=== PATIENT | male | born 2000 | race Hispanic/Latino ===

== ENCOUNTER 2023-06-05 08:36 | Day surgery (SDC) | payer SELFPAY ==
[2023-06-05] VITALS (16 sets, daily range): BP systolic 105–144; BP diastolic 60–90; PULSE 59–100; RESP 12–21; TEMP 36.4–36.9; O2SAT 98–100
--- NOTE | ~2023-06-05 | XR_ITS ---
EXAMINATION: XR abdomen/kub 1V INDICATION: Left flank pain and stone TECHNIQUE: Supine views of the abdomen were obtained on 2 radiographs. COMPARISON: CT from today FINDINGS: There is a 3 mm stone projecting in the proximal left ureter projecting between the left L2 and L3 transverse processes. Punctate stones of the kidneys identified on CT are not definitely seen . The bowel gas pattern is normal. There are no dilated loops of bowel. Multiple nodules are again no yosef in the right lower lobe, see CT for follow-up recommendations. IMPRESSION: 1. 3 mm stone proximal left ureter. Reviewed, dictated and finalized at location B. ER CRIMINAL
--- NOTE | ~2023-06-05 | CT_ITS ---
EXAMINATION: CT abdomen pelvis wo con DATE: 06/05/2023 10:25 INDICATION: Left-sided abdominal pain TECHNIQUE: Computed tomography (CT) of the abdomen and pelvis was performed without intravenous contr ast. Automated exposure control and iterative reconstruction technique were employed. The dose-length product was 310.79 mGy-cm. COMPARISON: None FINDINGS: Bronchiectasis and multiple pulmonary nodules clustered in the posterior right lower lobe, the larges t nodule measuring 1.6 x 1.1 cm. Additional 5 mm nodule at the lingula. Heart size is normal. No rené cardial or pleural effusion. Small sliding-type hiatal hernia versus wall thickening the distal esoph rufus. Liver, gallbladder, spleen, pancreas and bilateral adrenal glands are normal. Bilateral nephrol ithiasis with 3 nonobstructing stones in both the left and right kidneys, the largest on the left shavonne suring 3 mm. There is additional 4 mm stone at the left ureteropelvic junction without hydronephrosis . Decompressed bladder is normal. Bowels including the appendix are normal. No free intraperitoneal g as or fluid. No pathologically enlarged abdominal or pelvic lymphadenopathy. Schmorl's node along the superior endplate of S1. IMPRESSION: 1. Bilateral nephrolithiasis with 4 mm stone at the left ureteral pelvic junction without hydronephro sis. 2. Bronchiectasis and numerous associated pulmonary nodules in the posterior right lower lobe. The la rgest measuring up to 1.6 x 1.1 cm. The distribution and bronchiectatic change suggests this is seque la of chronic infection but would recommend further evaluation with either PET/CT or 3 month follow-u p low-dose noncontrast chest CT. 3. Small sliding-type hiatal hernia versus wall thickening in the distal esophagus. Reviewed, dictated and finalized at location A. [employer] IMPRESSION: 1. Bilateral nephrolithiasis with 4 mm stone at the left ureteral pelvic juncti on without hydronephrosis. 2. Bronchiectasis and numerous associated pulmonary nodules in the posterior ri ght lower lobe. The largest measuring up to 1.6 x 1.1 cm. The distribution and bronchiectatic change suggests this is sequela of chronic infection but would r ecommend further evaluation with either PET/CT or 3 month follow-up low-dose no ncontrast chest CT. 3. Small sliding-type hiatal hernia versus wall thickening in the distal esopha dayana.
--- NOTE | ~2023-06-05 | XR_ITS ---
EXAMINATION: XR retrograde pyelo w/stent LT DATE: 06/05/2023 15:50 TUBE CLEANER INDICATION: LEFT STONE RETRO/W STENT . TECHNIQUE: 4 fluoroscopic images, including 2 cine clips of 74 and 33 images of the abdomen and pelvi s were obtained during left retrograde pyelography with stent placement performed by the surgeon. I w as not present in the operating room. Fluoroscopy exposure time was 61.5 seconds. Air Kerma 15.48 mGy . DAP [id number] mGym2. COMPARISON: CT abdomen pelvis 06/05/2023 FINDINGS: Contrast is injected into the left ureter revealing a normal mid and distal ureter. Possible small fi lling defect at the UPJ on the left. Mild calyceal clubbing on the left. Post stent deployment the pr oximal partially expanded coil projects over the left kidney in the distal coil projects over the jourdan dder. IMPRESSION: Fluoroscopic documentation of left retrograde pyelography with stent placement. Please refer to the o perative note for complete procedural details . Reviewed, dictated and finalized at location K. CLEANER IMPRESSION: Fluoroscopic documentation of left retrograde pyelography with stent placement. Please refer to the operative note for complete procedural details .
[2023-06-05 10:09] LABS: Basophils Percent Auto 0.3 % (0.2-1.2); Eosinophils Percent Auto 0.3 % (0-4.4); Hematocrit 48.8 % (42.0-52.0); Hemoglobin 15.3 g/dL (14.0-18.0); Immature Granulocyte Absolute 0.05 K/mm3 (0.00-0.031); Immature Granulocyte Percent A 0.5 % (0-0.5); Lymphocytes Absolute Auto 1.15 K/mm3 (0.9-3.2); Lymphocytes Percent Auto 10.7 % (18.3-44.2); Mean Corpuscular HGB Conc 31.4 g/dl (32-36); Mean Platelet Volume 10.4 fl (7.4-10.4); Monocytes Absolute Auto 0.2 K/mm3 (0.1-0.6); Monocytes Percent Auto 2.2 % (2.6-8.5); Neutrophils Absolute Auto 9.3 K/mm3 (1.3-6.7); Platelet Count Result 285 k/mm3 (150-375); Red Blood Count 5.88 M/mm3 (4.6-6.20); Red Cell Distribution Width 14.6 % (11.5-14.5); White Blood Count 10.8 K/mm3 (4.5-10.0)
[2023-06-05 10:18] LABS: Appearance Urine Turbid (Clear); Bacteria Urine None Seen /hpf; Bilirubin Urine Negative (Negative); Blood Urine 3+ (Negative); Color Urine Yellow (Yellow); Glucose Urine UA Negative (Negative); Ketones Urine Negative (Negative); Leukocyte Esterase Ur Trace LEU/UL (Negative); Nitrate Urine Negative (Negative); Non Pathogenic Casts 0-2; Protein Urine 1+ mg/dL (Negative); RBC Urine >100 /hpf (0-2); Specific Grav Ur 1.022 (1.001-1.035); Squamous Epithelial Cell Urine None seen /hpf (Few); WBC Urine 0-5 /hpf; pH Urine 8.5 (5.0-9.0)
[2023-06-05 10:22] LABS: Alanine Aminotransferase 33 U/L (6-50); Albumin Level 4.9 g/dL (3.5-5.1); Alkaline Phosphatase 107 U/L (38-126); Anion Gap 9 mmol/L (8-16); Aspartate Amino Transferase 33 U/L (17-59); Bilirubin,Total 0.7 mg/dL (0.2-1.3); Blood Urea Nitrogen 16 mg/dL (9-20); Calcium 9.5 mg/dL (8.4-10.2); Carbon Dioxide 26 mmol/L (22-30); Chloride 105 mmol/L (98-107); Estimated CRCL calculation 90 ml/min; Estimated Glomerular Filt Rate > 60; Glucose 124 mg/dL (65-110); Lipase 53 U/L (23-300); Potassium 4.1 mmol/L (3.4-5.0); Sodium 140 mmol/L (137-145)
[2023-06-05 10:27] LABS: Add Urine Microscopic? YES
--- NOTE | 2023-06-05 10:28 | PC.NURSE ---
Pt assessment performed with php software engineer Lashaun #[id number]
[2023-06-05] MEDS: MORPHINE SULFATE (*CRX) 4 MG/ML INJ IV PUSH ×2 (10:42→11:35)
[2023-06-05] MEDS: ONDANSETRON INJ 4 MG/2 ML VIAL IV PUSH (10:43)
[2023-06-05] MEDS: ONDANSETRON INJ 4 MG/2 ML VIAL (11:35)
--- NOTE | 2023-06-05 11:48 | ED.ABDPAIN ---
HPI - Abdominal Pain General Chief Complaint: Abdominal Pain Stated Complaint: flank pain/vomiting Time Seen by Provider: 06/05/23 09:31 History of Present Illness HPI narrative: Patient is a 23-year-old male who presents ER with left-sided flank pain moving into his abdomen. Sudden onset this morning. Associated with nausea and vomiting. Feels similar to kidney stones he has had lasered in [place]. No dysuria. No fevers or chills or sweats. No aggravating or alleviating factors. Related Data Allergies Allergy/AdvReac Type Severity Reaction Status Date / Time No Known Allergies Allergy Verified 06/05/23 10:36 Review of Systems Review of Systems: All systems reviewed & are unremarkable except as noted in HPI and below Constitutional: Constitutional: Denies chills, Denies fatigue and Denies fever(s) ENT: Denies nasal congestion and Denies sore throat Cardiovascular: Cardiovascular: Denies chest pain, Denies rapid heart rate and Denies radiating jaw, neck or arm pain Gastrointestinal: Gastrointestinal: Reports abdominal pain, Reports nausea and Reports vomiting Genitourinary: Genitourinary: Denies hematuria, Denies oliguria, Denies dysuria, Denies testicular pain and Reports urinary frequency PMFSH Past Medical History Medical History Kidney stones Surgical History Surgical History H/O lithotripsy Exam Narrative: GENERAL: Uncomfortable-appearing, well-nourished, and in no acute distress. HEAD: Normocephalic, atraumatic. ENT: Mucous membranes moist. NECK: Supple. CHEST: Clear to auscultation. No respiratory distress. HEART: Regular rate and rhythm. Normal peripheral pulses. ABDOMEN: Soft, nontender, nondistended. EXTREMITIES: Normal range of motion. No edema. SKIN: Warm, dry, no rash. NEURO: Alert and oriented x3. PSYCH: Normal mood and affect. Course Course Emergency Course: Patient with persistent pain. Discussed with urology. Will take to the OR for definitive treatment. Vital Signs Vital signs: Vital Signs Temperature 97.6 F 06/05/23 08:48 Pulse Rate 74 06/05/23 08:48 Respiratory Rate 20 06/05/23 08:48 Blood Pressure 124/72 06/05/23 08:48 Pulse Oximetry 100 06/05/23 08:48 Oxygen Delivery Room Air 06/05/23 08:48 Temperature 97.8 F 06/05/23 16:32 Pulse Rate 93 06/05/23 17:40 Respiratory Rate 16 06/05/23 17:40 Blood Pressure 139/90 06/05/23 17:40 Pulse Oximetry 99 06/05/23 17:10 Oxygen Delivery Room Air 06/05/23 17:10 Oxygen Flow Rate 6 06/05/23 16:45 MDM - Abdominal Pain Lab Data 06/05/23 09:57 06/05/23 09:57 Labs: Lab Results 06/05/23 Range/Units 09:57 WBC 10.8 H (4.5-10.0) K/mm3 RBC 5.88 (4.6-6.20) M/mm3 Hgb 15.3 (14.0-18.0) g/dL Hct 48.8 (42.0-52.0) % MCV 83.0 (80-100) fl MCH 26.0 (26-34) pg MCHC 31.4 L (32-36) g/dl RDW 14.6 H (11.5-14.5) % Plt Count 285 (150-375) k/mm3 MPV 10.4 (7.4-10.4) fl Immature Gran % (Auto) 0.5 (0-0.5) % Neut % (Auto) 86.0 H (45.5-73.1) % Lymph % (Auto) 10.7 L (18.3-44.2) % Gordon % (Auto) 2.2 L (2.6-8.5) % Eos % (Auto) 0.3 (0-4.4) % Baso % (Auto) 0.3 (0.2-1.2) % Lymph # (Auto) 1.15 (0.9-3.2) K/mm3 Gordon # (Auto) 0.2 (0.1-0.6) K/mm3 Eos # (Auto) 0.0 (0-0.3) K/mm3 Baso # (Auto) 0.0 (0.0-0.1) K/mm3 Abs Immat Gran (auto) 0.05 H (0.00-0.031) K/mm3 Absolute Neuts (auto) 9.3 H (1.3-6.7) K/mm3 Absolute Nucleated RBC 0.0 (0.0-0.012) K/mm3 Nucleated RBC % 0.0 (0.0-0.2) % Sodium 140 (137-145) mmol/L Potassium 4.1 (3.4-5.0) mmol/L Chloride 105 (98-107) mmol/L Carbon Dioxide 26 (22-30) mmol/L Anion Gap 9 (8-16) mmol/L BUN 16 (9-20) mg/dL Creatinine 1.00 (0.7-1.3) mg/dL Estim Creat Clear Calc 90 ml/min Estimated GFR > 60 (59 - ) Glucose 124 H (65-110) mg/dL Ca
--- NOTE | 2023-06-05 13:00 | WPDURCON ---
Assessment and Plan Assessment and plan (1) Bilateral renal stones: Code(s): N20.0 - Calculus of kidney Status: Acute Assessment and Plan: No intervention today. Will follow annually with KUB, not visible on KUB. (2) Left ureteral stone: Code(s): N20.1 - Calculus of ureter Status: Acute Assessment and Plan: Visible on KUB, refractory pain despite attempts to control it with IV pain meds. Plan to visit the OR today with Dr. Riley for a Cystoscopy, left ureteroscopy, possible stone extraction, possible left stent placement, left retrograde pyelogram, possible holmium laser. Obtain consent. Keep NPO. Will likely discharge home after procedure if patient is improved. Urology Consult Note HPI Date Seen: 06/05/23 Primary Care Provider: [employer] MANAGER PHYSICIAN Consult Narrative Reason for consult: Left proximal ureteral stone Narrative: Mann Diane is a 23 year old male who presented to the ER with left-sided flank pain radiating into his LLQ.? The pain started suddenly this morning associated with nausea and vomiting.? He has a history stones and this feels similar to kidney stones he has had lasered in [place].? No dysuria or hematuria. No fevers or chills or sweats.? UA is normal and not suspicious of UTI, WBC is 10.8, Creatinine is 1.00, afebrile and his CT shows bilateral renal stones with a 4mm left UPJ stone without hydronephrosis and the KUB also confirms the left proximal ureteral stone. He is still having pain despite attempts to control it with IV pain medications. [facility] Past Medical History Medical History Kidney stones Surgical History Surgical History H/O lithotripsy Meds Home Medications and Allergies Allergies Allergy/AdvReac Type Severity Reaction Status Date / Time No Known Allergies Allergy Verified 06/05/23 10:36 Vital Signs Vital Signs - 24 hr 06/05/23 08:48 06/05/23 09:45 06/05/23 10:13 Temperature 97.6 F Pulse Rate 74 77 82 Respiratory Rate 20 17 20 Blood Pressure 124/72 125/77 144/88 H Pulse Oximetry 100 99 100 Oxygen Delivery Room Air 06/05/23 10:15 06/05/23 10:54 06/05/23 11:00 Temperature Pulse Rate 80 75 67 Respiratory Rate 19 15 14 Blood Pressure 135/82 109/76 110/74 Pulse Oximetry 100 98 100 Oxygen Delivery 06/05/23 11:30 06/05/23 11:47 Temperature Pulse Rate 65 69 Respiratory Rate 21 H 12 Blood Pressure 105/65 110/79 Pulse Oximetry 100 100 Oxygen Delivery Results Labs 06/05/23 09:57 06/05/23 09:57 Labs: Short CBC 06/05/23 Range/Units 09:57 WBC 10.8 H (4.5-10.0) K/mm3 Hgb 15.3 (14.0-18.0) g/dL Hct 48.8 (42.0-52.0) % Plt Count 285 (150-375) k/mm3 BMP 06/05/23 09:57 Sodium 140 Potassium 4.1 Chloride 105 Carbon Dioxide 26 BUN 16 Creatinine 1.00 Glucose 124 H Calcium 9.5 Liver Function 06/05/23 Range/Units 09:57 Total Bilirubin 0.7 (0.2-1.3) mg/dL AST 33 (17-59) U/L ALT 33 (6-50) U/L Alkaline Phosphatase 107 (38-126) U/L Albumin 4.9 (3.5-5.1) g/dL Urine 06/05/23 Range/Units 09:57 Urine Color Yellow (Yellow) Urine Appearance Turbid H (Clear) Urine pH 8.5 (5.0-9.0) Ur Specific [place] 1.022 (1.001-1.035) Urine Protein 1+ H (Negative) mg/dL Urine Glucose (UA) Negative (Negative) mg/dL Imaging Attestation: I personally reviewed and interpreted this imaging study as follows: Radiologist's impression: CT shows bilateral renal stones with a 4mm left UPJ stone without hydronephrosis and the KUB also confirms the left proximal ureteral stone.
--- NOTE | 2023-06-05 13:43 | PC.NURSE ---
[place] [employer] with Urology spoke with pt via interperter informed in detail the procedure and POC post op
[2023-06-05] MEDS: KETOROLAC 15 MG/ML VIAL (*BKC) IV PUSH (14:23)
--- NOTE | 2023-06-05 15:24 | WPDANESEPPF ---
Anes - Initial Pre Proc Eval Procedure: Operation Date: 06/05/23 15:30 Proposed Procedures p Cystoscopy, Left Ureteroscopy, Left Retrograde Pyelogram, Left Stone Extraction, Possible Left Stent Placement, Possible Holmium Laser Procedure - Demetrio Riley MD Date/Time: 06/05/23 15:24 Surgeon: Demetrio Riley MD Pre Op Diagnosis: flank pain/vomiting Patient Data Age: 23 Gender: M Height: 1.57 m Weight: 75 kg Last Vital Signs Temp 36.7 C 06/05/23 14:26 Pulse 59 L 06/05/23 14:26 Resp 18 06/05/23 14:26 BP 141/79 H 06/05/23 14:26 Pulse Ox 100 06/05/23 14:26 O2 Del Method Room Air 06/05/23 08:48 Allergies Allergy/AdvReac Type Severity Reaction Status Date / Time No Known Allergies Allergy Verified 06/05/23 10:36 Laboratory Tests 06/05/23 09:57 WBC 10.8 H K/mm3 (4.5-10.0) RBC 5.88 M/mm3 (4.6-6.20) Hgb 15.3 g/dL (14.0-18.0) Hct 48.8 % (42.0-52.0) MCV 83.0 fl (80-100) MCH 26.0 pg (26-34) MCHC 31.4 L g/dl (32-36) RDW 14.6 H % (11.5-14.5) Plt Count 285 k/mm3 (150-375) MPV 10.4 fl (7.4-10.4) Immature Gran % (Auto) 0.5 % (0-0.5) Neut % (Auto) 86.0 H % (45.5-73.1) Lymph % (Auto) 10.7 L % (18.3-44.2) Cameron % (Auto) 2.2 L % (2.6-8.5) Eos % (Auto) 0.3 % (0-4.4) Baso % (Auto) 0.3 % (0.2-1.2) Lymph # (Auto) 1.15 K/mm3 (0.9-3.2) Cameron # (Auto) 0.2 K/mm3 (0.1-0.6) Eos # (Auto) 0.0 K/mm3 (0-0.3) Baso # (Auto) 0.0 K/mm3 (0.0-0.1) Abs Immat Gran (auto) 0.05 H K/mm3 (0.00-0.031) Absolute Neuts (auto) 9.3 H K/mm3 (1.3-6.7) Absolute Nucleated RBC 0.0 K/mm3 (0.0-0.012) Nucleated RBC % 0.0 % (0.0-0.2) Sodium 140 mmol/L (137-145) Potassium 4.1 mmol/L (3.4-5.0) Chloride 105 mmol/L (98-107) Carbon Dioxide 26 mmol/L (22-30) Anion Gap 9 mmol/L (8-16) BUN 16 mg/dL (9-20) Creatinine 1.00 mg/dL (0.7-1.3) Estim Creat Clear Calc 90 ml/min Estimated GFR > 60 (59 - ) Glucose 124 H mg/dL (65-110) Calcium 9.5 mg/dL (8.4-10.2) Total Bilirubin 0.7 mg/dL (0.2-1.3) AST 33 U/L (17-59) ALT 33 U/L (6-50) Alkaline Phosphatase 107 U/L (38-126) Total Protein 9.0 H g/dL (6.3-8.2) Albumin 4.9 g/dL (3.5-5.1) Lipase 53 U/L (23-300) Urine Color Yellow (Yellow) Urine Appearance Turbid H (Clear) Urine pH 8.5 (5.0-9.0) Ur Specific [place] 1.022 (1.001-1.035) Urine Protein 1+ H mg/dL (Negative) Urine Glucose (UA) Negative mg/dL (Negative) Urine Ketones Negative mg/dL (Negative) Ur Blood (Man) 3+ H (Negative) Urine Nitrate Negative (Negative) Urine Bilirubin Negative (Negative) Urine Urobilinogen 1.0 mg/dL (<2.0) Leukocyte Esterase Rfl Trace H OMA/UL (Negative) Urine RBC >100 H /hpf (0-2) Urine WBC 0-5 /hpf Ur Squamous Epith Cells None seen /hpf (Few) Urine Bacteria None seen /hpf Urine Casts 0-2 Patient hx anesthesia problems: none Family hx anesthesia problems: none Results Review: All pre-operative results and documents have been reviewed as part of the pre-operative evaluation. [facility] Past Medical History Medical History Kidney stones Surgical History Surgical History H/O lithotripsy Anes - Eval Final PreProcedure Day of Procedure 06/05/23 15:24 Patient weight: normal Heart: regular rate and rhythm Lungs: clear to auscultation Airway: Mallampati scale class III Neurological: alert and oriented Last oral intake: >/= 8 hours ASA classification: II Emergent: no Anesthetic plan: proceed Anesthesia type and monitoring: general LMA and standard monitoring Results Review: All pre-operative results and documents have been reviewed as part of
--- NOTE | 2023-06-05 15:30 | WPDHPUPDATE1 ---
History and Physical Update Update Date/Time: 06/05/23 15:30 History and Physical has been reviewed, including an updated exam of the patient. There are NO changes in the patient's condition. Risks, benefits, and alternatives have been discussed and questions answered. Patient agrees to proceed with procedure.
[2023-06-05] MEDS: ceFAZolin 2 GM/D5W 50 ML 2 GM/50 ML BAG IVPB (15:45)
[2023-06-05] MEDS: LIDOCAINE HCL 2% GEL UROJET 10 ML PKG MUCOUS MEM (16:22)
[2023-06-05] MEDS: LACTATED RINGERS 1,000 ML 30 ML IV CONT ×2 (16:32→16:51)
--- NOTE | 2023-06-05 16:33 | W.PM.PROC2 ---
Procedure Note - Detailed Date of Procedure 06/05/23 Pre-op Diagnosis flank pain/vomiting Bilateral renal stones Left proximal ureteral stone Post-op Diagnosis Same Procedure Performed Cystoscopy, left retrograde pyelogram, left ureteroscopy, holmium laser lithotripsy, stone extraction, stent placement Surgeon Demetrio Riley MD Anesthesia General Indications A gentleman with a proximal left ureteral stone. Pain has been difficult to control. He presents today for intervention. He understands risks of bleeding, infection, damage to the urinary tract, damage to the ureter, inability to remove the stone. He agrees to proceed Findings Left ureteral stone completely removed Description of Procedure He has correctly identified. Informed consent obtained. From the operating room. He was given general anesthesia. He was placed in dorsal thigh position. He was prepped and draped sterile fashion. Time-out performed. Cystoscopy revealed a normal-appearing bladder without abnormalities. I did retrograde pyelogram on the left. He had a delicate distal ureter without hydronephrosis. A proximal ureteral stone was seen. It was at the ureteropelvic junction. I placed a guidewire to the kidney. I dilated the ureter the 810 dilator. I then placed a 2nd guidewire. I backloaded the ureteral scope over the guidewire. I was able to the get the ureteral scope into the proximal ureter. It was evident that the stone was pushed into the kidney. I examined all calices. The stone was discovered in the renal pelvis. I basketed the stone. I to 2 extracted. It got stuck at the ureteropelvic junction. I then took stone back into the kidney. I used the laser fragment the stone. I was able to fold onto large part of the stone extracted intact. I then re-loaded the cystoscope. I placed a 4.8 variable length stent over the wire. Proximal coil was in the kidney. Distal coil was in the bladder. A string was left on. The bladder was drained. The string was secured to his penis with a Tegaderm. He was awakened transferred to PACU in stable condition. instructions were given to his uncle on how to remove the stent. Implants 4.8 variable length stent Estimated Blood Loss 2 Drains No Pathology Yes (Ureteral stone) Complications No immediate complications Condition Stable
[2023-06-05] MEDS: fentaNYL CITRATE INJ (*CRX) 100 MCG/2 ML VIAL 25 MCG IV PUSH (17:25)
[2023-06-05] MEDS: oxyCODONE HCL (*CRX) 5 MG TAB IR PO (17:45)
[2023-06-05] MEDS: oxyBUTYnin CHLORIDE 5 MG TABLET PO (18:22)
== END 2023-06-05 18:30 | disposition home or self-care (01) ==
LOC: ANHED 12:21 → ANHSURGERY 14:42
PROVIDERS: Emergency Provider Emergency Medicine; Visit Provider Urology
PROC: (CPT 52352; principal; 2023-06-05 15:30)
DX: N20.2 Calculus of kidney with calculus of ureter (principal)
CPT/HCPCS: 52356; 36415; 74018; 74176; 74420; 80053; 81001; 82365; 83690; 85025; 88300; 96374; 96375; 96376; 99285; A9270; C1769; C2617; J0690; J1100; J1885; J2250; J2270; J2405; J2704; J3010; J7120; Q9966

== ENCOUNTER 2023-06-10 17:37 | Inpatient (IN) | payer SELFPAY ==
[2023-06-10] VITALS (7 sets, daily range): BP systolic 112–133; BP diastolic 59–85; PULSE 64–89; RESP 10–18; TEMP 36.3–36.7; O2SAT 98–99; BMI 22.8
--- NOTE | ~2023-06-10 | CT_ITS ---
EXAMINATION: CT abdomen pelvis wo con DATE: 06/10/2023 18:17 INDICATION: Left flank pain, kidney stone TECHNIQUE: Computed tomography (CT) of the abdomen and pelvis was performed with intravenous contrast . Automated exposure control and iterative reconstruction technique were employed. The dose-length pr oduct was 343.08 mGy-cm. COMPARISON: 06/05/2023. FINDINGS: Lower thorax: Right lower lobe bronchiectasis and multiple nodules. Liver: Normal. Biliary/Gallbladder: Gallbladder is normal. No bile duct dilation. Pancreas: No mass or duct dilation. Spleen: Normal. Adrenals:No mass. Kidneys: Mild left perinephric stranding. Mild left hydronephrosis. Punctate bilateral nonobstructing calculi. GI tract: No small or large bowel dilation. Normal appendix. Mesentery/Peritoneum: No ascites, mass, or free air. Retroperitoneum: No mass. Pelvis: Pelvic organs are within normal limits. Soft Tissues: Soft tissues and body wall unremarkable. Bones: No acute osseous finding. IMPRESSION: Mild left hydronephrosis and inflammatory changes with no obstructing stone, concerning for ascending infection on the left. Bronchiectasis and multiple pulmonary nodules in the right lower lobe, prior recommendation for 3 mon th follow-up CT chest or PET/CT is unchanged. Reviewed, dictated and finalized at location K. RDS COORDINATOR IMPRESSION: Mild left hydronephrosis and inflammatory changes with no obstructing stone, co ncerning for ascending infection on the left. Bronchiectasis and multiple pulmonary nodules in the right lower lobe, prior re commendation for 3 month follow-up CT chest or PET/CT is unchanged.
--- NOTE | ~2023-06-10 | CT_ITS ---
EXAMINATION:CT chest high resolution w con DATE: 06/13/2023 09:21 INDICATION: Pulmonary nodules. Bronchiectasis. TECHNIQUE: Computed tomography (CT) of the chest was performed with 75 mL Omnipaque 350 intravenous c ontrast. Automated exposure control and iterative reconstruction technique were employed. The dose-le ngth product (DLP) was 280.45 mGy-cm. COMPARISON: CT abdomen and pelvis 06/10/2023 FINDINGS: There is bronchiectasis in basilar right lower lobe and lingula. There are nodules in these lung segments measuring up to 14 mm on the right. No pleural effusion. Calcified right hilar and med iastinal lymph nodes are consistent with old granulomatous disease. The heart size is normal. No rené cardial effusion. The bones are unremarkable. IMPRESSION: 1. Nodules and bronchiectasis involving basilar right lower lobe and lingula, likely chronic or recur rent infection. Reviewed, dictated and finalized at location A. LY CHAIN INTERN IMPRESSION: 1. Nodules and bronchiectasis involving basilar right lower lobe and lingula, l ikely chronic or recurrent infection.
--- NOTE | ~2023-06-10 | CT_ITS ---
EXAMINATION: CT abdomen pelvis w con DATE: 06/13/2023 22:46 INDICATION: Sepsis, recent urologic procedure TECHNIQUE: Computed tomography (CT) of the abdomen and pelvis was performed with 100 mL Omnipaque 350 intravenous contrast. Automated exposure control and iterative reconstruction technique were employe d. The dose-length product was 337.19 mGy-cm. COMPARISON: None. FINDINGS: Lower thorax: Unchanged bronchiectasis and right lower lobe nodules. Liver: Normal. Biliary/Gallbladder: Gallbladder is normal. No bile duct dilation. Pancreas: No mass or duct dilation. Spleen: Normal. Adrenals:No mass. Kidneys: Increasing left perinephric stranding. Unchanged mild left hydronephrosis. Patchy renal pare nchymal enhancement on the left. Punctate nonobstructing bilateral calculi. GI tract: No small or large bowel dilation. Normal appendix. Mesentery/Peritoneum: No ascites, mass, or free air. Retroperitoneum: No mass. Pelvis: Pelvic organs are within normal limits. Soft Tissues: Soft tissues and body wall unremarkable. Bones: No acute osseous finding. IMPRESSION: Persistent findings of ascending infection on the left. Stable bronchiectasis in right lower lobe nodules, presumably infectious/inflammatory, recommend 3 mo nth follow-up CT chest for PET/CT Reviewed, dictated and finalized at location K. LE OPERATOR IMPRESSION: Persistent findings of ascending infection on the left. Stable bronchiectasis in right lower lobe nodules, presumably infectious/inflam matory, recommend 3 month follow-up CT chest for PET/CT
--- NOTE | 2023-06-10 18:04 | ED.MALEGU ---
HPI - Male Genitourinary General Chief complaint: Urogenital-Male Stated complaint: patient removed stent and began having pain Time Seen by Provider: 06/10/23 17:50 Source: patient Mode of arrival: ambulatory Limitations: language barrier History of Present Illness HPI Narrative: Patient is a status post cystoscopy, left retrograde pyelogram, left ureteroscopy, holmium laser lithotripsy, stone extraction, stent placement by Dr. Riley on June 05, 2023 Distal coil was in the bladder. A string was left on. To be removed today. Patient was able to remove the string today 4 hours ago subsequently started having severe pain left flank area, left lower quadrant, nausea vomiting twice. He denies any urinary symptoms including burning sensation, frequency, urgency or hematuria. His main complaint at this time is left flank and left lower quadrant pain. Patient speaks Maltese, his friend at the bedside who was able to translate to Latvian. Related Data Allergies Allergy/AdvReac Type Severity Reaction Status Date / Time No Known Allergies Allergy Verified 06/10/23 17:37 Review of Systems Review of Systems: All systems reviewed & are unremarkable except as noted in HPI and below PMFSH Past Medical History Medical History Kidney stones Surgical History Surgical History H/O lithotripsy Exam Narrative: General appearance: Well-developed, well-nourished, in pain Skin: Normal color Head: Normocephalic, nontraumatic Eyes: Clear conjunctiva ENT: Oropharynx normal, ears normal, nose normal Neck: Supple, nontender Chest and respiratory: Airway patent, no respiratory distress, no accessory muscle use Heart: Regular rate/rhythm Abdomen: Soft, diffuse tenderness left lower quadrant and left flank,, no organomegaly, quiet bowel sounds Vascular: Normal peripheral pulses, normal capillary refill. Musculoskeletal: Normal range of motion, nontender back Neurologic: Alert and oriented ?3, AUDIT MANAGER is normal as tested, no gross motor deficit Course Consultations Consultation #1: Dr. Hurst/urologist, recommends admit patient to hospitalist for 2 days Date: 06/10/23 Time: 20:35 Vital Signs Vital signs: Vital Signs Temperature 98.1 F 06/10/23 20:40 Pulse Rate 64 06/10/23 20:40 Respiratory Rate 18 06/10/23 20:40 Blood Pressure 112/67 06/10/23 20:40 Pulse Oximetry 98 06/10/23 20:40 Temperature 98.1 F 06/10/23 20:40 Pulse Rate 75 06/10/23 20:46 Respiratory Rate 14 06/10/23 20:46 Blood Pressure 120/59 L 06/10/23 20:46 Pulse Oximetry 98 06/10/23 20:46 MDM - Male Genitourinary MDM Narrative Medical decision making narrative: 23 years old male came with the above symptoms Vital signs on arrival to the ED was stable, Physical examination as above Differential diagnosis kidney stone, pyelonephritis, urinary tract infection, ureteral stent complication Work-up today showed white count of 10.4 with left shift, chemistry within normal limit, urine analysis showed severe infection CT scan of the abdomen pelvis without contrast showed finding consistent with pyelonephritis Rocephin 1 g IV given Patient received 1 L of normal saline IV, 0.5 of Dilaudid IV and 4 mg of Zofran IV on arrival to the ED Lab Data 06/10/23 18:08 06/10/23 18:08 Labs: Lab Results 06/10/23 06/10/23 Range/Units 18:08 18:28 WBC 10.4 H (4.5-10.0) K/mm3 RBC 5.43 (4.6-6.20) M/mm3 Hgb 14.3 (14.0-18.0) g/dL Hct 44.6 (42.0-52.0) % MCV 82.1 (80-100) fl MCH 26.3 (26-34) pg MCHC 32
[2023-06-10] MEDS: SODIUM CHLORIDE 0.9% IV 1,000 ML 999 ML IV CONT (18:10)
[2023-06-10] MEDS: HYDROmorphone HCL INJ (*CRX) 1 MG/ML SYR 0.5 MG IV PUSH (18:10)
[2023-06-10] MEDS: ONDANSETRON INJ 4 MG/2 ML VIAL IV PUSH (18:10)
[2023-06-10 18:15] LABS: Basophils Percent Auto 0.2 % (0.2-1.2); Eosinophils Absolute Auto 0.1 K/mm3 (0-0.3); Eosinophils Percent Auto 1.3 % (0-4.4); Hematocrit 44.6 % (42.0-52.0); Hemoglobin 14.3 g/dL (14.0-18.0); Immature Granulocyte Absolute 0.02 K/mm3 (0.00-0.031); Immature Granulocyte Percent A 0.2 % (0-0.5); Lymphocytes Absolute Auto 0.88 K/mm3 (0.9-3.2); Lymphocytes Percent Auto 8.4 % (18.3-44.2); Mean Corpuscular HGB Conc 32.1 g/dl (32-36); Mean Corpuscular Hemoglobin 26.3 pg (26-34); Mean Corpuscular Volume 82.1 fl (80-100); Mean Platelet Volume 10.4 fl (7.4-10.4); Monocytes Absolute Auto 0.5 K/mm3 (0.1-0.6); Monocytes Percent Auto 4.4 % (2.6-8.5); Neutrophils Absolute Auto 8.9 K/mm3 (1.3-6.7); Neutrophils Percent Auto 85.5 % (45.5-73.1); Platelet Count Result 269 k/mm3 (150-375); Red Blood Count 5.43 M/mm3 (4.6-6.20); Red Cell Distribution Width 13.7 % (11.5-14.5); White Blood Count 10.4 K/mm3 (4.5-10.0)
[2023-06-10 18:24] LABS: Anion Gap 9 mmol/L (8-16); Blood Urea Nitrogen 15 mg/dL (9-20); Calcium 9.5 mg/dL (8.4-10.2); Carbon Dioxide 25 mmol/L (22-30); Chloride 103 mmol/L (98-107); Estimated Glomerular Filt Rate > 60; Glucose 103 mg/dL (65-110); Sodium 137 mmol/L (137-145)
[2023-06-10 19:54] LABS: Appearance Urine Cloudy (Clear); Bacteria Urine None Seen /hpf; Bilirubin Urine 1+ (Negative); Blood Urine 3+ (Negative); Color Urine Dark Yellow (Yellow); Glucose Urine UA Negative (Negative); Ketones Urine Negative (Negative); Leukocyte Esterase Ur 2+ LEU/UL (Negative); Need Manual Microscopic Reviewed; Nitrate Urine Positive (Negative); Non Pathogenic Casts 0-2; Protein Urine 3+ mg/dL (Negative); RBC Urine >100 /hpf (0-2); Squamous Epithelial Cell Urine None seen /hpf (Few); WBC Urine >100 /hpf
[2023-06-10 20:04] LABS: Add Urine Microscopic? YES
--- NOTE | 2023-06-10 21:22 | PM.IMHP ---
H&P: HPI History of Present Illness Date/Time: 06/10/23 21:15 Chief Complaint: Left groin and flank pain. Narrative: This is very pleasant [place] speaking male with history of kidney stones who presented to the emergency department via private vehicle from home for evaluation of left groin and flank pain. The patient provides the following history through a spanish interpreter/translator. Six days ago he developed sudden onset left-sided flank pain for which he was seen in the ED and was diagnosed with bilateral renal stones and left proximal ureteral stone. The same day he underwent cystoscopy with left retrograde pyelogram, left ureteroscopy, holmium laser lithotripsy, stone extraction, and stent placement per Dr. Riley. He was instructions to remove the stent himself at home and approximately 4 hours thereafter he developed increasing pain in the left low back and flank associated with nausea and vomiting. He denies fever, chills, sweats, dysuria, and hematuria. No known history of multidrug resistant organisms. In the ED: He was afebrile on arrival with stable vital signs. Labs were reviewed and they were pretty unremarkable aside from a mildly elevated WBC count of 10.4. Urine showed 3+ protein, 3+ blood, positive nitrates, 2+ leukocyte esterase, greater than [address] of the abdomen and pelvis showed mild left hydronephrosis and inflammatory changes no obstructing stone, concerning for ascending infection on the left. Also noted was bronchiectasis and multiple pulmonary nodules in the right lower lobe noted on prior imaging with recommendations for 3 month follow-up CT (he has no known history of pulmonary disease and has no symptoms to suggest exacerbation). He received 2 L normal saline, 0.5 mg hydromorphone, and 1 g ceftriaxone and he is being admitted in this setting for further treatment and urology consult. Review of Systems Review of Systems: Twelve systems were reviewed and are negative except for as per HPI. [facility] Past Medical History Medical History (Updated 06/10/23 @ 21:31 by Jessie Monte PA-C) Kidney stones Surgical History Surgical History (Updated 06/10/23 @ 21:28 by Jessie Monte PA-C) History of cystoscopy History of lithotripsy History of ureter stent Family History Family History (Updated 06/10/23 @ 21:27 by Jessie Monte PA-C) Other Family history non-contributory Social History Social History (Updated 06/10/23 @ 21:27 by Jessie Monte PA-C) Social History: Emergency contact: Logan Freeman, uncle. Code status: Full code. Smoking status: Current some day smoker Additional smoking assessment comments: Smokes a few cigarettes a day. Alcohol intake: current Alcohol use details: Social alcohol in moderation. Additional living arrangements comments: Lives in [place], here visiting family. 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 Meds Home Medications and Allergies Home Medications Medication Instructions Recorded Confirmed Type hydrocodone 5 mg-acetaminophen 325 1 tablet PO Q6H PRN pain #20 tabs 06/05/23 Rx mg tablet oxybutynin chloride 5 mg tablet 5 mg PO TID #30 tabs 06/05/23 Rx phenazopyridine 200 mg tablet 200 mg PO TID PRN pain 6 doses #20 06/05/23 Rx (Pyridium) tabs Allergies Allergy/AdvReac Type Severity Reaction Status Date / Time No Known Allergies Allergy Verified 06/10/23 17:37 Vital Signs Vital Signs - 24 hr 06/10/23 20:40 06/10/23 20:40 06/10/23 20:41 Temperature 98.1 F Pulse Rate 64 78 Respiratory Rate 18 13 Blood Pressure 112/67 112/67 Pulse Oximetry 98 98 98 06/10/23 20:45 06/10/23 20:46 Temperature Pulse Rate 73 75 Respiratory Rate 11 L 14 Blood Pressure 120/59 L Pulse Oximetry 99 98 Exam Narrative: General: Well-developed, nontoxic-appearing male sitting up in bed in no acute distress. HEENT: Normocephalic, atraumatic. PERRL, EOMI. Scl
--- NOTE | 2023-06-10 21:27 | PC.NURSE ---
Meal provided for pt, per hospital MENTAL HEALTH TECHNICIAN
[2023-06-10] MEDS: SODIUM CHLORIDE 0.9% IV 1,000 ML 200 ML IV CONT (23:20)
[2023-06-10] MEDS: CALCIUM CARBONATE (TUMS) 500 MG (200 MG ELEMENTAL) 400 MG PO (23:48)
[2023-06-11] MEDS: PANTOPRAZOLE 40 MG TABLET PO (02:20)
[2023-06-11] MEDS: SODIUM CHLORIDE 0.9% IV 1,000 ML 200 ML IV CONT ×4 (04:10→19:40)
[2023-06-11 04:43] VITALS: BP 109/62; PULSE 68; RESP 20; TEMP 36.6; O2SAT 99
[2023-06-11 08:35] VITALS: O2SAT 96
--- NOTE | 2023-06-11 11:31 | PM.IMPN ---
Progress Note: A&P Assessment and Plan (1) Pyelonephritis of left kidney: Code(s): N12 - Tubulo-interstitial nephritis, not specified as acute or chronic Status: Acute Assessment and Plan: Continue IV antibiotics and monitor culture. (2) Hydronephrosis: Code(s): N13.30 - Unspecified hydronephrosis Status: Acute Assessment and Plan: Continue with IV antibiotics. (3) Bronchiectasis: Code(s): J47.9 - Bronchiectasis, uncomplicated Status: Acute Assessment and Plan: Continue with IV antibiotics. Refer patient to outpatient pulmonary. (4) Right lower lobe pulmonary nodule: Code(s): R91.1 - Solitary pulmonary nodule Status: Acute Assessment and Plan: Refer patient to outpatient pulmonary. Plan The patient presented to the emergency department for evaluation of left flank and groin pain which started approximately 4 hours after pulling a ureteral stent as per HPI. Labs, imaging, EKG, and all reports were personally reviewed. Clinically he has left-sided pyelonephritis and he has been started on ceftriaxone, pending urine and blood cultures. Urology was consulted by the ED physician and their input is appreciated. Analgesics are available as needed. CT also showed evidence of bronchiectasis and multiple pulmonary nodules in the right lower lobe which will need to be monitored as an outpatient. He has no known history of pulmonary disease and denies history of asthma, severe pneumonia, cystic fibrosis, autoimmune diseases, immunodeficiency, environmental exposures, etc.. He has no symptoms to suggest bronchiectasis exacerbation. His home medications will be reviewed and resumed as appropriate. Findings and treatment plan were discussed with the patient. Questions were solicited and answered to satisfaction. The patient's medical management will be taken over by the hospitalist team in a.m. Subjective Date/time seen: 06/11/23 11:31 Interval history: Patient was seen during the morning rounds today. Patient is feeling much better pain decreased pain. No fevers. No abdominal pain, nausea, no vomiting. No shortness of breath or chest pain. Review of Systems Review of Systems: Twelve systems were reviewed and are negative except for as per HPI. Exam Narrative: General: Well-developed, nontoxic-appearing male sitting up in bed in no acute distress. HEENT: Normocephalic, atraumatic. PERRL, EOMI. Sclera anicteric. Oral mucosa moist. Neck: Supple. Respiratory: Lungs are clear to auscultation bilaterally. Cardiovascular: Regular rate and rhythm with S1-S2. Gastrointestinal: Abdomen is soft and nondistended with positive bowel sounds. He is tender to palpation about the left flank and left lower quadrant with positive left-sided CVA tenderness. Skin: Warm and dry. Extremities: No cyanosis, clubbing, or edema. Radial and pedal pulses intact. Neurological: Alert. Cranial nerves 2-12 are grossly intact. No gross focal deficits to casual conversation. Psychiatric: Pleasant and cooperative with normal mood and affect. Judgment and insight intact. Objective Data Vital Signs Vital Signs: Vital Signs - 24 hr 06/10/23 20:40 06/10/23 20:40 06/10/23 20:41 Temperature 36.7 C Pulse Rate 64 78 Respiratory Rate 18 13 Blood Pressure 112/67 112/67 Pulse Oximetry 98 98 98 Oxygen Delivery 06/10/23 20:45 06/10/23 20:46 06/10/23 22:00 Temperature Pulse Rate 73 75 89 Respiratory Rate 11 L 14 15 Blood Pressure 120/59 L 118/76 Pulse Oximetry 99 98 99 Oxygen Delivery 06/10/23 20:47 06/10/23 22:32 06/10/23 22:30 Temperature 36.3 C L Pulse Rate 66 87 Respiratory Rate 10 L 16 Blood Pressure 133/85 Pulse Oximetry 98 99 Oxygen Delivery Room Air 06/11/23 04:43 06/11/23 08:35 Temperature 36.6 C Pulse Rate 68 Respiratory Rate 20 Blood Pressure 109/62 Pulse Oximetry 99 96 Oxygen Delivery Room Air Intake/Output
[2023-06-11] MEDS: CALCIUM CARBONATE (TUMS) 500 MG (200 MG ELEMENTAL) 400 MG PO (11:56)
--- NOTE | 2023-06-11 12:32 | WPDUROPN2 ---
Progress Note: A&P Assessment and Plan (1) Pyelonephritis of left kidney: Code(s): N12 - Tubulo-interstitial nephritis, not specified as acute or chronic Status: Acute Assessment and Plan: urine and blood cultures are pending. No obstruction on CT scan. No indication for surgical intervention. Subjective Subjective Date/Time Seen: 06/11/23 12:32 Interval history: He removed his stent and then developed flank pain and fever. He has been admitted for antibiotics for possible pyelonephritis. Review of Systems Review of Systems: All systems reviewed & are unremarkable except as noted in HPI and below Exam Const: General: comfortable and no acute distress Resp: Effort & Inspection: normal respiratory effort Psych: Mental Status: mental status grossly normal Objective Data Vital Signs Vital Signs: Vital Signs - 24 hr 06/10/23 20:40 06/10/23 20:40 06/10/23 20:41 Temperature 36.7 C Pulse Rate 64 78 Respiratory Rate 18 13 Blood Pressure 112/67 112/67 Pulse Oximetry 98 98 98 Oxygen Delivery 06/10/23 20:45 06/10/23 20:46 06/10/23 22:00 Temperature Pulse Rate 73 75 89 Respiratory Rate 11 L 14 15 Blood Pressure 120/59 L 118/76 Pulse Oximetry 99 98 99 Oxygen Delivery 06/10/23 20:47 06/10/23 22:32 06/10/23 22:30 Temperature 36.3 C L Pulse Rate 66 87 Respiratory Rate 10 L 16 Blood Pressure 133/85 Pulse Oximetry 98 99 Oxygen Delivery Room Air 06/11/23 04:43 06/11/23 08:35 Temperature 36.6 C Pulse Rate 68 Respiratory Rate 20 Blood Pressure 109/62 Pulse Oximetry 99 96 Oxygen Delivery Room Air Intake/Output Intake/Output: Intake & Output 06/08/23 06/09/23 06/10/23 06/11/23 23:59 23:59 23:59 23:59 Intake Total 1050 2600 Output Total 375 Balance 1050 2225 Meds/Results Medications: Active Medications Generic Name Dose Route Start Last Admin Trade Name Freq PRN Reason Stop Dose Admin Acetaminophen 650 mg 06/10/23 21:05 Acetaminophen 325 Mg Tablet PO Q4H PRN Mild Pain (1-3) or Fever Calcium Carbonate 400 mg 06/10/23 23:22 06/11/23 11:56 Calcium Carbonate (Tums) 500 Mg (200 Mg Elemental) PO 400 mg Q6H PRN Administration Indigestion Enoxaparin Sodium 40 mg 06/12/23 09:00 Enoxaparin 40 Mg/0.4 Ml Syringe SUB-Q DAILY ASHLEY Hydromorphone HCl 0.5 mg 06/10/23 21:05 Hydromorphone Hcl Inj (*Crx) 1 Mg/Ml Syr IV PUSH Q4H PRN Pain Rated 7-10 Sodium Chloride 1,000 mls @ 200 mls/hr 06/10/23 21:05 06/11/23 09:14 Normal Saline Iv IV CONT 200 mls/hr .Q5H ASHLEY Administration Ondansetron HCl 4 mg 06/10/23 21:05 Ondansetron Inj 4 Mg/2 Ml Vial IV PUSH Q4H PRN Nausea Radiology Results: ITS Impressions Abdomen/Pelvis CT 06/10/23 18:42 IMPRESSION: Mild left hydronephrosis and inflammatory changes with no obstructing stone, concerning for ascending infection on the left. Bronchiectasis and multiple pulmonary nodules in the right lower lobe, prior recommendation for 3 month follow-up CT chest or PET/CT is unchanged. Labs Labs: Laboratory Results - last 24 hr 06/10/23 06/10/23 18:08 18:28 WBC 10.4 H RBC 5.43 Hgb 14.3 Hct 44.6 MCV 82.1 MCH 26.3 MCHC 32.1 RDW 13.7 Plt Count 269 MPV 10.4 Immature Gran % (Auto) 0.2 Neut % (Auto) 85.5 H Lymph % (Auto) 8.4 L [place] % (Auto) 4.4 Eos % (Auto) 1.3 Baso % (Auto) 0.2 Lymph # (Auto) 0.88 L [place] # (Auto) 0.5 Eos # (Auto) 0.1 Baso # (Auto) 0.0 Abs Immat Gran (auto) 0.02 Absolute Neuts (auto) 8.9 H Absolute Nucleated RBC 0.0 Nucleated RBC % 0.0 Sodium 137 Potassium 4.0 Chloride 103 Carbon Dioxide 25 Anion Gap 9 BUN 15 Creatinine 0.80 Estim Creat Clear Calc Not Reportable Estimated GFR > 60 Glucose 103 Calcium 9.5 Urine Color Dark yellow Urine Appearance Cloudy H Urine pH 7.0 Ur Specific Wheeler 1.020 Ur
[2023-06-11 13:58] VITALS: BP 109/55; PULSE 63; RESP 14; TEMP 36.5; O2SAT 99
[2023-06-11 20:09] VITALS: BP 108/57; PULSE 77; RESP 16; TEMP 36.7; O2SAT 99
[2023-06-11] MEDS: HYDROmorphone HCL INJ (*CRX) 1 MG/ML SYR 0.5 MG IV PUSH (21:37)
[2023-06-12] MEDS: SODIUM CHLORIDE 0.9% IV 1,000 ML 200 ML IV CONT ×5 (00:50→22:42)
[2023-06-12] MEDS: ONDANSETRON INJ 4 MG/2 ML VIAL IV PUSH (00:53)
[2023-06-12 04:56] VITALS: BP 114/64; PULSE 69; RESP 16; TEMP 36.6; O2SAT 99
[2023-06-12 05:47] LABS: Basophils Percent Auto 0.2 % (0.2-1.2); Eosinophils Absolute Auto 0.2 K/mm3 (0-0.3); Eosinophils Percent Auto 3.8 % (0-4.4); Hematocrit 37.6 % (42.0-52.0); Hemoglobin 11.9 g/dL (14.0-18.0); Immature Granulocyte Absolute 0.02 K/mm3 (0.00-0.031); Immature Granulocyte Percent A 0.4 % (0-0.5); Lymphocytes Absolute Auto 1.58 K/mm3 (0.9-3.2); Lymphocytes Percent Auto 29.6 % (18.3-44.2); Mean Corpuscular HGB Conc 31.6 g/dl (32-36); Mean Corpuscular Hemoglobin 26.6 pg (26-34); Mean Corpuscular Volume 83.9 fl (80-100); Mean Platelet Volume 10.3 fl (7.4-10.4); Monocytes Absolute Auto 0.4 K/mm3 (0.1-0.6); Monocytes Percent Auto 7.9 % (2.6-8.5); Neutrophils Absolute Auto 3.1 K/mm3 (1.3-6.7); Neutrophils Percent Auto 58.1 % (45.5-73.1); Platelet Count Result 236 k/mm3 (150-375); Red Blood Count 4.48 M/mm3 (4.6-6.20); Red Cell Distribution Width 13.9 % (11.5-14.5); White Blood Count 5.3 K/mm3 (4.5-10.0)
[2023-06-12 06:05] LABS: Alanine Aminotransferase 21 U/L (6-50); Albumin Level 3.5 g/dL (3.5-5.1); Alkaline Phosphatase 70 U/L (38-126); Anion Gap 8 mmol/L (8-16); Aspartate Amino Transferase 21 U/L (17-59); Bilirubin,Total 0.4 mg/dL (0.2-1.3); Blood Urea Nitrogen 12 mg/dL (9-20); Calcium 8.5 mg/dL (8.4-10.2); Carbon Dioxide 23 mmol/L (22-30); Chloride 110 mmol/L (98-107); Estimated CRCL calculation 128 ml/min; Estimated Glomerular Filt Rate > 60; Glucose 93 mg/dL (65-110); Potassium 4.2 mmol/L (3.4-5.0); Sodium 141 mmol/L (137-145)
[2023-06-12] MEDS: ENOXAPARIN 40 MG/0.4 ML SYRINGE SUB-Q (09:05)
[2023-06-12] MEDS: CALCIUM CARBONATE (TUMS) 500 MG (200 MG ELEMENTAL) 400 MG PO (11:34)
[2023-06-12 14:00] VITALS: BP 118/62; PULSE 64; RESP 16; TEMP 36.6; O2SAT 96
--- NOTE | 2023-06-12 18:24 | PM.IMPN ---
Progress Note: A&P Assessment and Plan (1) Right lower lobe pulmonary nodule: Code(s): R91.1 - Solitary pulmonary nodule Status: Acute (2) Bronchiectasis: Code(s): J47.9 - Bronchiectasis, uncomplicated Status: Acute (3) Hydronephrosis: Code(s): N13.30 - Unspecified hydronephrosis Status: Acute (4) Pyelonephritis of left kidney: Code(s): N12 - Tubulo-interstitial nephritis, not specified as acute or chronic Status: Acute (5) Ureterolithiasis: Code(s): N20.1 - Calculus of ureter Status: Acute (6) Bilateral renal stones: Code(s): N20.0 - Calculus of kidney Status: Acute (7) Left ureteral stone: Code(s): N20.1 - Calculus of ureter Status: Acute (8) Acute pyelonephritis: Code(s): N10 - Acute pyelonephritis Status: Acute Plan 1. Acute pyelonephritis appreciat urology consultation. no indication for surgery ct ceftriaxone 2 g/day until urine cx sensitivities return. enterococcus is the specimen 2. Bronchiectasis with multiple pulmonary nodules at least needs cancer screening. will get cea, ca 19-9, ca 125 for tomorrow. Get a high res ct scan tomorrow w+wo con and consult pulmonology if significantly abnormal Time Spent With Patient Time: 45 min Subjective Date/time seen: 06/12/23 18:24 Interval history: no symptoms. pt inquiring about antibiotics, length of tx time, sensitivities of abx. Exam Narrative: General:?Well-developed, nontoxic-appearing male sitting up in bed in no acute distress. HEENT:??Normocephalic, atraumatic.? PERRL, EOMI. Sclera anicteric.? Oral mucosa moist. Neck:??Supple. Respiratory:?Lungs are clear to auscultation bilaterally. Cardiovascular:??Regular rate and rhythm with S1-S2. Gastrointestinal:??Abdomen is soft and nondistended with positive bowel sounds. He is tender to palpation about the left flank and left lower quadrant with positive left-sided CVA tenderness. Skin:??Warm and dry. Extremities:??No cyanosis, clubbing, or edema. Radial and pedal pulses intact. Neurological:??Alert.? Cranial nerves 2-12 are grossly intact. No gross focal deficits to casual conversation. Psychiatric:??Pleasant and cooperative with normal mood and affect.? Judgment and insight intact. Objective Data Vital Signs Vital Signs: Vital Signs - 24 hr 06/11/23 20:09 06/11/23 20:00 06/12/23 04:56 Temperature 98.0 F 97.9 F Pulse Rate 77 69 Respiratory Rate 16 16 Blood Pressure 108/57 L 114/64 Pulse Oximetry 99 99 Oxygen Delivery Room Air 06/12/23 09:00 06/12/23 14:00 Temperature 97.9 F Pulse Rate 64 Respiratory Rate 16 Blood Pressure 118/62 Pulse Oximetry 96 Oxygen Delivery Room Air Intake/Output Intake/Output: Intake & Output 06/09/23 06/10/23 06/11/23 06/12/23 23:59 23:59 23:59 23:59 Intake Total 1050 5140 5630 Output Total 3450 700 Balance 1050 1690 4930 Meds/Results Medications: Active Medications Generic Name Dose Route Start Last Admin Trade Name Freq PRN Reason Stop Dose Admin Acetaminophen 650 mg 06/10/23 21:05 Acetaminophen 325 Mg Tablet PO Q4H PRN Mild Pain (1-3) or Fever Calcium Carbonate 400 mg 06/10/23 23:22 06/12/23 11:34 Calcium Carbonate (Tums) 500 Mg (200 Mg Elemental) PO 400 mg Q6H PRN Administration Indigestion Enoxaparin Sodium 40 mg 06/12/23 09:00 06/12/23 09:05 Enoxaparin 40 Mg/0.4 Ml Syringe SUB-Q 40 mg DAILY ASHLEY Administration Hydromorphone HCl 0.5 mg 06/10/23 21:05 06/11/23 21:37 Hydromorphone Hcl Inj (*Crx) 1 Mg/Ml Syr IV PUSH 0.5 mg Q4H PRN Administration Pain Rated 7-10 Sodium Chloride 1,000 mls @ 200 mls/hr 06/10/23 21:05 06/12/23 17:12 Normal Saline Iv IV CONT 200 mls/hr .Q5H ASHLEY Administration Ceftriaxone Sodium 2 gm in 100 mls @ 200 mls/hr 06/12/23 18:00 Rocephin 2 Gm/Ns 100 Ml IVPB Q24H ASHLEY Ondansetron HCl 4 mg 06/10/23 21:05 06/12/23
[2023-06-12 19:20] VITALS: BP 110/56; PULSE 70; RESP 16; TEMP 36.7; O2SAT 100
[2023-06-12] MEDS: cefTRIAXone 2 GM/NS 100 ML 2 GM/100 ML BAG IVPB (20:14)
--- NOTE | 2023-06-12 20:26 | PC.NURSE ---
Screening for diagnostic test or procedure form completed via [email or web address] for CT scan ordered tomorrow. All patient questions answered.
[2023-06-13] VITALS (8 sets, daily range): BP systolic 93–121; BP diastolic 41–68; PULSE 85–118; RESP 16–18; TEMP 37.1–38.6; O2SAT 97–100
[2023-06-13] MEDS: SODIUM CHLORIDE 0.9% IV 1,000 ML 200 ML IV CONT ×2 (03:45→08:38)
[2023-06-13] MEDS: ACETAMINOPHEN 325 MG TABLET 650 MG PO ×4 (05:49→23:12)
[2023-06-13 07:26] LABS: Carcinoembryonic Antigen < 0.3 ng/mL (0.0-3.0)
[2023-06-13] MEDS: ENOXAPARIN 40 MG/0.4 ML SYRINGE SUB-Q (08:14)
[2023-06-13] MEDS: AMOXICILLIN 500 MG CAPSULE PO ×2 (11:47→21:39)
--- NOTE | 2023-06-13 11:48 | PM.IMPN ---
Progress Note: A&P Assessment and Plan (1) Right lower lobe pulmonary nodule: Code(s): R91.1 - Solitary pulmonary nodule Status: Acute (2) Bronchiectasis: Code(s): J47.9 - Bronchiectasis, uncomplicated Status: Acute (3) Hydronephrosis: Code(s): N13.30 - Unspecified hydronephrosis Status: Acute Plan 23M w/ PMH b/l urolithiasis presented with groin pain after self removal or L ureteral stent at home. Admitted for hydronephrosis and UTI 1) complicated UTI, hx of b/l urolithiasis w/ recent stent placement and removal - received 2 day of cetriaxone. resolving. WBC downtrending. switch to amoxicillin per sensitives to enterococcus for another 7 days 2) bronchiectasis w/ R pulmonary nodules - cancer markers pending. consult pulmonology, concern given his age and smoking with anemia - smoking cessation counseling ordered. has smoked a few cigarettes for 5 years. denies environmental exposures 3) anemia - likely chronic, likely AOCD. check iron studies and ferritin FEN: saline lock IV, regular diet GI prophylaxis: none DVT prophylaxis: lovenox Lines: pIV Code Status: Full Code Dispo: pulmonology consulted ordered, he will likely get lost to follow up as he is returning to [place] soon, we'll get him as much guidance as possible before discharge More than 35 minutes spent on chart review, patient interaction and assessment and plan. Subjective Date/time seen: 06/13/23 11:48 Interval history: NAOE. pt has no complaints. he also denies sob, abdominal pain, pain during urination. he does however endorse smoking to me. 5 years a few cigarettes per day Review of Systems Review of Systems: All systems reviewed & are unremarkable except as noted in HPI and below Exam Const: General: no acute distress, alert and Physically active Resp: Effort & Inspection: normal respiratory effort Auscultation: clear to auscultation bilaterally Cardio: Rate: regular rate Rhythm: regular rhythm Heart sounds: S1 normal heart sound present and S2 normal heart sound present GI: Inspection: non-distended GI Palp: No abdominal tenderness Auscultation: normal bowel sounds Extrem: Right upper extremity: no edema Objective Data Vital Signs Vital Signs: Vital Signs - 24 hr 06/12/23 14:00 06/12/23 19:20 06/12/23 20:00 Temperature 97.9 F 98.1 F Pulse Rate 64 70 Respiratory Rate 16 16 Blood Pressure 118/62 110/56 L Pulse Oximetry 96 100 Oxygen Delivery Room Air 06/13/23 05:10 06/13/23 05:49 06/13/23 08:25 Temperature 99.2 F 99.2 F Pulse Rate 85 Respiratory Rate 16 16 Blood Pressure 121/68 Pulse Oximetry 100 100 Oxygen Delivery Room Air Intake/Output Intake/Output: Intake & Output 06/10/23 06/11/23 06/12/23 06/13/23 23:59 23:59 23:59 23:59 Intake Total 1050 5140 7130 2050 Output Total 3450 700 1400 Balance 1050 1690 6430 650 Meds/Results Medications: Active Medications Generic Name Dose Route Start Last Admin Trade Name Freq PRN Reason Stop Dose Admin Acetaminophen 650 mg 06/10/23 21:05 06/13/23 05:49 Acetaminophen 325 Mg Tablet PO 650 mg Q4H PRN Administration Mild Pain (1-3) or Fever Amoxicillin 500 mg 06/13/23 12:00 06/13/23 11:47 Amoxicillin 500 Mg Capsule PO 06/19/23 22:01 500 mg Q8HR ASHLEY Administration Calcium Carbonate 400 mg 06/10/23 23:22 06/12/23 11:34 Calcium Carbonate (Tums) 500 Mg (200 Mg Elemental) PO 400 mg Q6H PRN Administration Indigestion Enoxaparin Sodium 40 mg 06/12/23 09:00 06/13/23 08:14 Enoxaparin 40 Mg/0.4 Ml Syringe SUB-Q 40 mg DAILY ASHLEY Administration Hydromorphone HCl 0.5 mg 06/10/23 21:05 06/11/23 21:37 Hydromorphone Hcl Inj (*Crx) 1 Mg/Ml Syr IV PUSH 0.5 mg Q4H PRN Administration Pain Rated 7-10 Ondansetron HCl 4 mg 06/10/23 21:05 06/12/23 00:53 Ondansetron Inj 4 Mg/2 Ml Vial IV PUSH 4 mg Q4H PRN Administration Nausea Radiology Resul
[2023-06-13] MEDS: HYDROmorphone HCL INJ (*CRX) 1 MG/ML SYR 0.5 MG IV PUSH (14:57)
[2023-06-13] MEDS: SODIUM CHLORIDE 0.9% IV 2,200 ML/1,000 ML BAG 999 ML IV CONT ×2 (22:28→23:27)
[2023-06-13 22:39] LABS: Basophils Percent Auto 0.2 % (0.2-1.2); Hematocrit 38.1 % (42.0-52.0); Hemoglobin 12.1 g/dL (14.0-18.0); Immature Granulocyte Percent A 0.6 % (0-0.5); Lymphocytes Absolute Auto 0.72 K/mm3 (0.9-3.2); Lymphocytes Percent Auto 4.2 % (18.3-44.2); Mean Corpuscular HGB Conc 31.8 g/dl (32-36); Mean Corpuscular Hemoglobin 26.4 pg (26-34); Mean Platelet Volume 10.3 fl (7.4-10.4); Monocytes Absolute Auto 1.2 K/mm3 (0.1-0.6); Monocytes Percent Auto 6.8 % (2.6-8.5); Neutrophils Percent Auto 88.2 % (45.5-73.1); Platelet Count Result 227 k/mm3 (150-375); Red Blood Count 4.59 M/mm3 (4.6-6.20); Red Cell Distribution Width 14.2 % (11.5-14.5)
[2023-06-13 22:57] LABS: Alanine Aminotransferase 25 U/L (6-50); Alkaline Phosphatase 71 U/L (38-126); Anion Gap 12 mmol/L (8-16); Aspartate Amino Transferase 21 U/L (17-59); Bilirubin,Total 0.9 mg/dL (0.2-1.3); Blood Urea Nitrogen 14 mg/dL (9-20); Calcium 8.6 mg/dL (8.4-10.2); Carbon Dioxide 22 mmol/L (22-30); Chloride 101 mmol/L (98-107); Estimated CRCL calculation 66 ml/min; Estimated Glomerular Filt Rate 54; Glucose 125 mg/dL (65-110); Potassium 3.4 mmol/L (3.4-5.0); Sodium 135 mmol/L (137-145)
[2023-06-13 22:58] LABS: Lactic Acid Reflex 1.2 mmol/L (0.7-2.0)
[2023-06-13 23:11] LABS: SARS-CoV-2 RNA PCR Negative (Negative)
--- NOTE | 2023-06-13 23:31 | P.PNCROSS_ITS ---
Event Note Event Note Event Note: 06/13/2023 21:00 Nursing staff called me to notify me of the patient meeting sepsis alert. The patient had been afebrile for hospital course until tonight when he spiked a temperature as high as 101.4. Patient was found to be diaphoretic and tachycardic. Patient's blood pressures were borderline low at 93 systolic. Patient denied having any pain or respiratory symptoms. Patient recently had a urethral stent that was removed the morning prior to admission. I was concerned about recurrence of patient's ascending urinary tract infection. The patient had been on Rocephin the 1st 2 days of hospital stay but had been transition to a amoxicillin today. The patient had had a high-resolution CT of the chest due to CT suggestive of bronchiectasis on the CT of the abdomen pelvis on admission. High-resolution CT demonstrated?Nodules and bronchiectasis involving basilar right lower lobe and lingula, likely chronic or recurrent infection. However I was still concerned about recurrent obstructive process in the urinary tract infections I sent the patient for a repeat CT scan of the abdomen and pelvis. Repeat CT scan demonstrated persistent ascending urinary tract infection with worsening perinephric stranding and persistent mild hydronephrosis. I went and updated the patient regarding his results and current plan of care. All of his questions were answered. The patient was having persistent fevers despite Tylenol. The patient was covered with 3 blankets. I tried to explain to him through the help of the gearcase assembler service (gearcase assembler [id number].) That he needed to have less blankets on him to help reduce his fever. I tried to explain that he could not have ibuprofen a due to his acute kidney injury. Assessment: Sepsis due to enterococcal pyelonephritis. Cannot completely rule out pneumonia. Antibiotics adjusted to Zosyn and vancomycin. Patient's CT does still demonstrate some hydronephrosis. I do not know if it would be beneficial to have urology re-evaluate the patient since there is no evidence of stone. Hypotension--resolved after 30 mL/kilos bolus. Will continue to monitor. Patient was started on maintenance fluids. Acute kidney injury--likely due to the sepsis. Will need to watch patient's kidney function closely given that he received to contrasted studies. The 1st contrasted study though was only a small amount of IV contrast. 45 minutes spent in critical care activities. Due to a high probability of clinically significant, life threatening deterioration, the patient required my highest level of preparedness to intervene emergently and I personally spent this critical care time directly and personally managing the patient. This critical care time included obtaining a history; examining the patient; pulse oximetry; ordering and review of studies; arranging urgent treatment with development of a management plan; evaluation of patient's response to treatment; frequent reassessment; and discussions with other providers. It was exclusive of separately billable procedures and treating other patients and teaching time. Please see Assessment and Plan section and the rest of the note for further information on patient assessment and treatment.
[2023-06-13] MEDS: PIPERACILLIN/TAZ 4.5G/NS 100ML 4.5 GM/100 ML BAG IVPB (23:51)
[2023-06-14] VITALS (14 sets, daily range): BP systolic 101; BP diastolic 42–61; PULSE 81–113; RESP 12–16; TEMP 36.9–39.4; O2SAT 98–100
[2023-06-14] MEDS: SODIUM CHLORIDE 0.9% IV 2,200 ML/1,000 ML BAG 999 ML IV CONT (00:46)
[2023-06-14] MEDS: HYDROmorphone HCL INJ (*CRX) 1 MG/ML SYR 0.5 MG IV PUSH (00:54)
[2023-06-14] MEDS: SODIUM CHLORIDE 0.9% IV 1,000 ML 125 ML IV CONT ×3 (01:00→21:31)
[2023-06-14 03:11] LABS: MRSA (PCR) NOT DETECTED (NOT DETECTE)
[2023-06-14] MEDS: ACETAMINOPHEN 325 MG TABLET 650 MG PO ×4 (03:46→17:23)
[2023-06-14] MEDS: PIPERACILLIN/TAZ 4.5G/NS 100ML 4.5 GM/100 ML BAG IVPB ×4 (05:48→23:06)
[2023-06-14 06:20] LABS: Hematocrit 35.3 % (42.0-52.0); Hemoglobin 11.1 g/dL (14.0-18.0); Mean Corpuscular HGB Conc 31.4 g/dl (32-36); Mean Corpuscular Hemoglobin 26.4 pg (26-34); Mean Corpuscular Volume 83.8 fl (80-100); Mean Platelet Volume 10.8 fl (7.4-10.4); Platelet Count Result 192 k/mm3 (150-375); Red Blood Count 4.21 M/mm3 (4.6-6.20); Red Cell Distribution Width 14.1 % (11.5-14.5); White Blood Count 18.8 K/mm3 (4.5-10.0)
[2023-06-14 06:38] LABS: Iron < 10 ug/dL (49-181)
[2023-06-14 06:40] LABS: Anion Gap 10 mmol/L (8-16); Blood Urea Nitrogen 11 mg/dL (9-20); Calcium 7.6 mg/dL (8.4-10.2); Carbon Dioxide 19 mmol/L (22-30); Chloride 105 mmol/L (98-107); Estimated CRCL calculation 104 ml/min; Estimated Glomerular Filt Rate > 60; Glucose 116 mg/dL (65-110); Potassium 3.3 mmol/L (3.4-5.0); Sodium 134 mmol/L (137-145)
[2023-06-14 06:48] LABS: Percent Iron Saturation 4 % (20-50)
[2023-06-14] MEDS: ENOXAPARIN 40 MG/0.4 ML SYRINGE SUB-Q (08:44)
[2023-06-14] MEDS: CALCIUM CARBONATE (TUMS) 500 MG (200 MG ELEMENTAL) 400 MG PO ×4 (09:29→23:05)
[2023-06-14] MEDS: POTASSIUM CHLORIDE 20 MEQ ER TABLET PO (09:30)
--- NOTE | 2023-06-14 09:57 | PM.IMPN ---
Progress Note: A&P Assessment and Plan (1) Right lower lobe pulmonary nodule: Code(s): R91.1 - Solitary pulmonary nodule Status: Acute (2) Bronchiectasis: Code(s): J47.9 - Bronchiectasis, uncomplicated Status: Acute (3) Hydronephrosis: Code(s): N13.30 - Unspecified hydronephrosis Status: Acute (4) Pyelonephritis of left kidney: Code(s): N12 - Tubulo-interstitial nephritis, not specified as acute or chronic Status: Acute Plan 23M w/ PMH b/l urolithiasis presented with groin pain after self removal or L ureteral stent at home. Admitted for hydronephrosis and UTI 1) complicated UTI/L pyelonephritis, hx of b/l urolithiasis w/ recent stent placement and removal - received 2 day of cetriaxone, then switched to amoxicillin based on c&S. - on night of 06/13 developed fever and sepsis. WBC 17 to 18. abx upgraded to vanc and zosyn. received sepsis fluid bolus and continues on maintenance fluids. BP 93/41 improved s/p fluids. ctm. tylenol prn - urology consulted. kidneys on CT abd pelv w/ contrast: Kidneys: Increasing left perinephric stranding. Unchanged mild left hydronephrosis. Patchy renal parenchymal enhancement on the left. Punctate nonobstructing bilateral calculi. appreciate urology recs. 2) sepsis w/ shock responsive to fluids - treat as above. monitor BP 3) bronchiectasis w/ R pulmonary nodules - cancer markers pending. consulted pulmonology, was given curbside consult from Dr. Monet, appreciate his assistance. recommend f/u CT scan in 3 months. - smoking cessation counseling ordered. has smoked a few cigarettes for 5 years. denies environmental exposures 4) anemia - likely chronic, likely AOCD based on studies. monitor as outpatient 5) SERJIO - 2/2 to sepsis, resolved. - hypocalcemia. start tums on 06/14 - hypokalemia. replaced on 06/14 FEN: regular diet. NS @ 125ml/hr GI prophylaxis: none DVT prophylaxis: lovenox Lines: pIV Code Status: Full Code Dispo: stable. More than 35 minutes spent on chart review, patient interaction and assessment and plan. Subjective Date/time seen: 06/14/23 09:57 Interval history: patient developed sepsis alert overnight with fever. his abx were escalated. currently he feels improved but knows he has a fever. he denies any chest pain, shortness of breath, n/v/d or abdominal pain or urinary symptoms. Review of Systems Review of Systems: All systems reviewed & are unremarkable except as noted in HPI and below Exam Const: General: comfortable and no acute distress Eyes: Pupils: Equal, round and reactive pupils present Neck: Neck: supple Resp: Effort & Inspection: normal respiratory effort Auscultation: clear to auscultation bilaterally Cardio: Rate: regular rate Rhythm: regular rhythm Heart sounds: no gallops, no murmurs and no rubs GI: Inspection: non-distended GI Palp: Yes Soft to palpation and No Tenderness to palpation present (GI) Auscultation: normal bowel sounds Other: no flank tenderness Neuro: Motor exam (neuro): 5/5 motor strength present throughout Extrem: General: no edema Objective Data Vital Signs Vital Signs: Vital Signs - 24 hr 06/13/23 13:52 06/13/23 14:10 06/13/23 20:41 Temperature 98.8 F 101.0 F H Pulse Rate 96 118 H Respiratory Rate 16 18 Blood Pressure 107/57 L 93/41 L Pulse Oximetry 100 99 97 Oxygen Delivery Room Air Fraction of Inspired Oxygen 21 06/13/23 20:55 06/13/23 23:12 06/13/23 23:41 Temperature 101.4 F H Pulse Rate Respiratory Rate Blood Pressure 105/56 L Pulse Oximetry Oxygen Delivery Room Air Fraction of Inspired Oxygen 06/14/23 00:12 06/14/23 06:00 06/14/23 06:38 Temperature 100.4 F H 103.0 F H 102.4 F H Pulse Rate 113 H Respiratory Rate 16 Blood Pressure 101/42 L Pulse Oximetry 98 Oxygen Delivery Fraction of Inspired Oxygen 06/14/23 08:03 06/14/23 08:43 Temperature 100.3 F H Pulse Rate Respiratory Rate
[2023-06-15] VITALS (7 sets, daily range): BP systolic 107–114; BP diastolic 58–67; PULSE 78–105; RESP 16–18; TEMP 36.9–37.4; O2SAT 100
[2023-06-15] MEDS: ACETAMINOPHEN 325 MG TABLET 650 MG PO (00:49)
[2023-06-15] MEDS: PIPERACILLIN/TAZ 4.5G/NS 100ML 4.5 GM/100 ML BAG IVPB (05:18)
[2023-06-15] MEDS: SODIUM CHLORIDE 0.9% IV 1,000 ML 125 ML IV CONT (05:18)
[2023-06-15] MEDS: CALCIUM CARBONATE (TUMS) 500 MG (200 MG ELEMENTAL) 400 MG PO ×4 (05:18→23:00)
[2023-06-15 05:56] LABS: Basophils Percent Auto 0.1 % (0.2-1.2); Eosinophils Absolute Auto 0.1 K/mm3 (0-0.3); Eosinophils Percent Auto 0.4 % (0-4.4); Hematocrit 35.6 % (42.0-52.0); Hemoglobin 11.4 g/dL (14.0-18.0); Immature Granulocyte Absolute 0.11 K/mm3 (0.00-0.031); Immature Granulocyte Percent A 0.6 % (0-0.5); Lymphocytes Absolute Auto 1.73 K/mm3 (0.9-3.2); Lymphocytes Percent Auto 10.1 % (18.3-44.2); Mean Corpuscular Hemoglobin 26.6 pg (26-34); Mean Corpuscular Volume 83.2 fl (80-100); Mean Platelet Volume 10.2 fl (7.4-10.4); Monocytes Absolute Auto 1.3 K/mm3 (0.1-0.6); Monocytes Percent Auto 7.7 % (2.6-8.5); Neutrophils Absolute Auto 13.9 K/mm3 (1.3-6.7); Neutrophils Percent Auto 81.1 % (45.5-73.1); Platelet Count Result 196 k/mm3 (150-375); Red Blood Count 4.28 M/mm3 (4.6-6.20); Red Cell Distribution Width 14.3 % (11.5-14.5); White Blood Count 17.1 K/mm3 (4.5-10.0)
[2023-06-15 06:12] LABS: Alanine Aminotransferase 23 U/L (6-50); Albumin Level 3.5 g/dL (3.5-5.1); Alkaline Phosphatase 68 U/L (38-126); Anion Gap 8 mmol/L (8-16); Aspartate Amino Transferase 19 U/L (17-59); Bilirubin,Total 0.5 mg/dL (0.2-1.3); Blood Urea Nitrogen 7 mg/dL (9-20); Calcium 8.7 mg/dL (8.4-10.2); Carbon Dioxide 22 mmol/L (22-30); Chloride 108 mmol/L (98-107); Estimated CRCL calculation 115 ml/min; Estimated Glomerular Filt Rate > 60; Glucose 98 mg/dL (65-110); Magnesium 1.8 mg/dL (1.6-2.3); Potassium 3.4 mmol/L (3.4-5.0); Sodium 138 mmol/L (137-145)
[2023-06-15 06:26] LABS: Procalcitonin 1.3 ng/mL
[2023-06-15] MEDS: ONDANSETRON INJ 4 MG/2 ML VIAL IV PUSH ×2 (07:43→14:03)
[2023-06-15] MEDS: ENOXAPARIN 40 MG/0.4 ML SYRINGE SUB-Q (08:01)
--- NOTE | 2023-06-15 09:00 | PM.IMPN ---
Progress Note: A&P Assessment and Plan (1) Right lower lobe pulmonary nodule: Code(s): R91.1 - Solitary pulmonary nodule Status: Acute (2) Bronchiectasis: Code(s): J47.9 - Bronchiectasis, uncomplicated Status: Acute (3) Hydronephrosis: Code(s): N13.30 - Unspecified hydronephrosis Status: Acute (4) Acute pyelonephritis: Code(s): N10 - Acute pyelonephritis Status: Acute Plan 23M w/ PMH b/l urolithiasis presented with groin pain after self removal or L ureteral stent at home. Admitted for hydronephrosis and UTI 1) complicated UTI/L pyelonephritis, hx of b/l urolithiasis w/ recent stent placement and removal - received 2 day of cetriaxone, then switched to amoxicillin based on c&S. - on night of 06/13 developed fever and sepsis. WBC 17 to 18. abx upgraded to vanc and zosyn. received sepsis fluid bolus and continues on maintenance fluids. BP 93/41 improved s/p fluids. on 06/14, beginning to defeversce, wbc coming down. d/c zosyn. - urology consulted. kidneys on CT abd pelv w/ contrast:?Kidneys: Increasing left perinephric stranding. Unchanged mild left hydronephrosis. Patchy renal parenchymal enhancement on the left. Punctate nonobstructing bilateral calculi.?appreciate urology recs. 2) sepsis w/ shock responsive to fluids - treat as above. bp improving, still on low normal range. 3) bronchiectasis w/ R pulmonary nodules - cancer markers pending. consulted pulmonology, was given curbside consult from Dr. Monet, appreciate his assistance. recommend f/u CT scan in 3 months. - smoking cessation counseling ordered. has smoked a few cigarettes/day for 5 years. denies environmental exposures 4) anemia - likely chronic, likely AOCD based on studies. monitor as outpatient 5) SERJIO - 2/2 to sepsis, resolved. - hypocalcemia. start tums on 06/14. resolved - hypokalemia. replaced on 06/14. resolved. FEN: regular diet. dc fluids GI prophylaxis: none DVT prophylaxis: lovenox Lines: pIV Code Status: Full Code Dispo: stable. Subjective Date/time seen: 06/15/23 09:00 Interval history: NAOE. pt reports feeling better today. he denies fever or chills or abdominal pain Review of Systems Review of Systems: All systems reviewed & are unremarkable except as noted in HPI and below Exam Const: General: comfortable Eyes: Pupils: Equal, round and reactive pupils present Resp: Effort & Inspection: normal respiratory effort Auscultation: clear to auscultation bilaterally Cardio: Rate: regular rate Rhythm: regular rhythm Heart sounds: no gallops, no murmurs and no rubs GI: Inspection: non-distended GI Palp: Yes Soft to palpation, No Firmness to palpation present (GI), No Tenderness to palpation present (GI) and No Guarding due to palpation present (GI) Auscultation: normal bowel sounds Extrem: General: no edema Objective Data Vital Signs Vital Signs: Vital Signs - 24 hr 06/14/23 09:40 06/14/23 09:54 06/14/23 12:01 Temperature 98.5 F Pulse Rate 104 H 101 H Respiratory Rate Blood Pressure Pulse Oximetry Oxygen Delivery 06/14/23 12:30 06/14/23 13:54 06/14/23 13:30 Temperature 100.4 F H 100.4 F H 99.8 F H Pulse Rate 100 Respiratory Rate 12 Blood Pressure 101/61 Pulse Oximetry 99 Oxygen Delivery 06/14/23 16:04 06/14/23 21:06 06/14/23 20:50 Temperature 98.4 F Pulse Rate 85 81 Respiratory Rate 16 Blood Pressure 101/57 L Pulse Oximetry 100 Oxygen Delivery Room Air 06/14/23 20:01 06/15/23 00:04 06/15/23 04:00 Temperature Pulse Rate 84 101 H 82 Respiratory Rate Blood Pressure Pulse Oximetry Oxygen Delivery 06/15/23 06:22 06/15/23 07:50 06/15/23 08:00 Temperature 99.3 F Pulse Rate 105 H 97 Respiratory Rate 16 16 Blood Pressure 114/67 Pulse Oximetry 100 100 Oxygen Delivery Room Air Intake/Output Intake/Output: Intake & Output 06/12/23 06/13/23 06/14/23 06/15/23 23:59 23:59 23
--- NOTE | 2023-06-15 11:02 | PC.NURSE ---
On 06/15/23, the student, [Onesimo Guerrero], provided care and [facility] I have reviewed the student's documentation and agree with the findings.
[2023-06-15 13:28] LABS: Vancomycin Trough < 5.0 ug/mL (10.0-20.0)
[2023-06-15] MEDS: HYDROmorphone HCL INJ (*CRX) 1 MG/ML SYR 0.5 MG IV PUSH (14:03)
[2023-06-15] MEDS: AMPICILLIN 1 GM/NS 50 ML 1 GM/50 ML BAG IVPB ×2 (17:04→23:00)
[2023-06-16 02:54] LABS: CA-125 6 U/mL (<35)
[2023-06-16] MEDS: CALCIUM CARBONATE (TUMS) 500 MG (200 MG ELEMENTAL) 400 MG PO (05:23)
[2023-06-16] MEDS: AMPICILLIN 1 GM/NS 50 ML 1 GM/50 ML BAG IVPB ×4 (05:23→23:29)
[2023-06-16 06:12] LABS: Basophils Percent Auto 0.1 % (0.2-1.2); Eosinophils Absolute Auto 0.1 K/mm3 (0-0.3); Eosinophils Percent Auto 0.9 % (0-4.4); Hematocrit 37.2 % (42.0-52.0); Immature Granulocyte Absolute 0.05 K/mm3 (0.00-0.031); Immature Granulocyte Percent A 0.4 % (0-0.5); Lymphocytes Percent Auto 14.3 % (18.3-44.2); Mean Corpuscular HGB Conc 32.3 g/dl (32-36); Mean Corpuscular Hemoglobin 26.3 pg (26-34); Mean Corpuscular Volume 81.6 fl (80-100); Monocytes Absolute Auto 0.7 K/mm3 (0.1-0.6); Monocytes Percent Auto 6.1 % (2.6-8.5); Neutrophils Absolute Auto 8.7 K/mm3 (1.3-6.7); Neutrophils Percent Auto 78.2 % (45.5-73.1); Platelet Count Result 241 k/mm3 (150-375); Red Blood Count 4.56 M/mm3 (4.6-6.20); Red Cell Distribution Width 14.4 % (11.5-14.5); White Blood Count 11.2 K/mm3 (4.5-10.0)
[2023-06-16 06:17] VITALS: BP 121/68; PULSE 90; RESP 16; TEMP 37.9; TEMP 38.1; O2SAT 99
[2023-06-16] MEDS: ACETAMINOPHEN 325 MG TABLET 650 MG PO (06:17)
[2023-06-16 06:23] LABS: Anion Gap 10 mmol/L (8-16); Blood Urea Nitrogen 7 mg/dL (9-20); Calcium 8.7 mg/dL (8.4-10.2); Carbon Dioxide 22 mmol/L (22-30); Chloride 108 mmol/L (98-107); Estimated CRCL calculation 115 ml/min; Estimated Glomerular Filt Rate > 60; Glucose 98 mg/dL (65-110); Potassium 3.6 mmol/L (3.4-5.0); Sodium 140 mmol/L (137-145)
[2023-06-16 06:57] LABS: Procalcitonin 0.8 ng/mL
[2023-06-16] MEDS: ENOXAPARIN 40 MG/0.4 ML SYRINGE SUB-Q (08:35)
[2023-06-16 08:37] VITALS: TEMP 36.8
--- NOTE | 2023-06-16 11:15 | PM.IMPN ---
Progress Note: A&P Assessment and Plan (1) Pyelonephritis of left kidney: Code(s): N12 - Tubulo-interstitial nephritis, not specified as acute or chronic Status: Acute Plan 23M w/ PMH b/l urolithiasis presented with groin pain after self removal or L ureteral stent at home. Admitted for hydronephrosis and UTI 1) complicated UTI/L pyelonephritis, hx of b/l urolithiasis w/ recent stent placement and removal - received 2 day of cetriaxone, then switched to amoxicillin based on c&S. - on night of 06/13 developed fever and sepsis. WBC 17 to 18. abx upgraded to vanc and zosyn. received sepsis fluid bolus. BP 93/41 improved s/p fluids. on 06/14, beginning to defeversce, wbc coming down. d/c zosyn. - 06/15. WBC coming down. mild fever. cont ampicillin - urology consulted. kidneys on CT abd pelv w/ contrast:?Kidneys: Increasing left perinephric stranding. Unchanged mild left hydronephrosis. Patchy renal parenchymal enhancement on the left. Punctate nonobstructing bilateral calculi.?appreciate urology recs. 2) sepsis w/ shock responsive to fluids - treat as above, resolved. 3) bronchiectasis w/ R pulmonary nodules - cancer markers pending. consulted pulmonology, was given curbside consult from Dr. Monet, appreciate his assistance. recommend f/u CT scan in 3 months. - smoking cessation counseling ordered. has smoked a few cigarettes/day for 5 years. denies environmental exposures 4) anemia - likely chronic, likely AOCD based on studies. monitor as outpatient 5) SERJIO - 2/2 to sepsis, resolved. - hypocalcemia. start tums on 06/14. resolved - hypokalemia. replaced on 06/14. resolved. FEN: regular diet. dc fluids GI prophylaxis: none DVT prophylaxis: lovenox Lines: pIV Code Status: Full Code Dispo: stable. Subjective Date/time seen: 06/16/23 11:15 Interval history: NAOE Review of Systems Review of Systems: All systems reviewed & are unremarkable except as noted in HPI and below Exam Const: General: comfortable and no acute distress Neck: Neck: supple Resp: Effort & Inspection: normal respiratory effort Auscultation: clear to auscultation bilaterally Cardio: Rate: regular rate Rhythm: regular rhythm GI: GI Palp: Yes Soft to palpation and No Tenderness to palpation present (GI) Extrem: General: no edema Objective Data Vital Signs Vital Signs: Vital Signs - 24 hr 06/15/23 13:53 06/15/23 20:39 06/15/23 21:15 Temperature 98.6 F 98.5 F Pulse Rate 92 78 Respiratory Rate 16 18 Blood Pressure 107/58 L 109/60 Pulse Oximetry 100 100 Oxygen Delivery Room Air 06/16/23 06:17 06/16/23 06:17 06/16/23 08:37 Temperature 100.6 F H 100.2 F H 98.2 F Pulse Rate 90 Respiratory Rate 16 Blood Pressure 121/68 Pulse Oximetry 99 Oxygen Delivery Intake/Output Intake/Output: Intake & Output 06/13/23 06/14/23 06/15/23 06/16/23 23:59 23:59 23:59 23:59 Intake Total 4252 4670 2610 840 Output Total 2300 1600 900 Balance 1952 3070 1710 840 Meds/Results Medications: Active Medications Generic Name Dose Route Start Last Admin Trade Name Freq PRN Reason Stop Dose Admin Acetaminophen 650 mg 06/10/23 21:05 06/16/23 06:17 Acetaminophen 325 Mg Tablet PO 650 mg Q4H PRN Administration Mild Pain (1-3) or Fever Calcium Carbonate 400 mg 06/14/23 08:50 06/16/23 05:23 Calcium Carbonate (Tums) 500 Mg (200 Mg Elemental) PO 400 mg Q6HR ASHLEY Administration Enoxaparin Sodium 40 mg 06/12/23 09:00 06/16/23 08:35 Enoxaparin 40 Mg/0.4 Ml Syringe SUB-Q 40 mg DAILY ASHLEY Administration Hydromorphone HCl 0.5 mg 06/10/23 21:05 06/15/23 14:03 Hydromorphone Hcl Inj (*Crx) 1 Mg/Ml Syr IV PUSH 0.5 mg Q4H PRN Administration Pain Rated 7-10 Ampicillin Sodium 1 gm in 50 mls @ 100 mls/hr 06/15/23 17:00 06/16/23 05:53 Ampicillin 1 Gm/Ns 50 Ml IVPB Infused Q6HR ASHLEY Infusion Nicotine Polacrilex 2 mg 06/13/23 11:49 Nicotine (*Pbkc) 2 Mg Gum PO
[2023-06-16 13:36] VITALS: BP 102/58; PULSE 77; RESP 18; TEMP 36.9; O2SAT 98
[2023-06-16 19:16] VITALS: BP 105/54; PULSE 82; RESP 18; TEMP 36.9; O2SAT 98
[2023-06-17] MEDS: AMPICILLIN 1 GM/NS 50 ML 1 GM/50 ML BAG IVPB (05:50)
[2023-06-17 06:00] VITALS: BP 112/64; PULSE 95; RESP 18; TEMP 37.2; O2SAT 100
[2023-06-17 06:07] LABS: Basophils Percent Auto 0.2 % (0.2-1.2); Eosinophils Absolute Auto 0.1 K/mm3 (0-0.3); Eosinophils Percent Auto 1.2 % (0-4.4); Hematocrit 37.4 % (42.0-52.0); Hemoglobin 11.9 g/dL (14.0-18.0); Immature Granulocyte Absolute 0.05 K/mm3 (0.00-0.031); Immature Granulocyte Percent A 0.5 % (0-0.5); Lymphocytes Absolute Auto 1.46 K/mm3 (0.9-3.2); Lymphocytes Percent Auto 14.5 % (18.3-44.2); Mean Corpuscular HGB Conc 31.8 g/dl (32-36); Mean Corpuscular Hemoglobin 26.2 pg (26-34); Mean Corpuscular Volume 82.4 fl (80-100); Mean Platelet Volume 10.1 fl (7.4-10.4); Monocytes Absolute Auto 0.7 K/mm3 (0.1-0.6); Monocytes Percent Auto 6.6 % (2.6-8.5); Neutrophils Absolute Auto 7.8 K/mm3 (1.3-6.7); Platelet Count Result 315 k/mm3 (150-375); Red Blood Count 4.54 M/mm3 (4.6-6.20); Red Cell Distribution Width 14.3 % (11.5-14.5); White Blood Count 10.1 K/mm3 (4.5-10.0)
[2023-06-17 06:18] LABS: Anion Gap 10 mmol/L (8-16); Blood Urea Nitrogen 11 mg/dL (9-20); Calcium 8.8 mg/dL (8.4-10.2); Carbon Dioxide 24 mmol/L (22-30); Chloride 107 mmol/L (98-107); Estimated CRCL calculation 104 ml/min; Estimated Glomerular Filt Rate > 60; Glucose 102 mg/dL (65-110); Potassium 3.7 mmol/L (3.4-5.0); Sodium 141 mmol/L (137-145)
[2023-06-17 06:33] LABS: Procalcitonin 0.5 ng/mL
--- NOTE | 2023-06-17 09:52 | PM.DS ---
DS: Admitting Diagnosis Discharge Date 06/17/23 Admitting Diagnosis pyelonephritis DS: Discharge Diagnosis Discharge Diagnosis (1) Pyelonephritis of left kidney: Code(s): N12 - Tubulo-interstitial nephritis, not specified as acute or chronic Status: Acute (2) Bronchiectasis: Code(s): J47.9 - Bronchiectasis, uncomplicated Status: Acute DS: Summary Hospital Course Hospital Course: 23M w/ PMH tobacco abuse, left urolithiasis s/p stent placement and removal presenting with abdominal pain. Just prior to admission the patient had completed self removal of L stent, n/v and abdominal pain ensued. He was found to have L pyelonephritis likely ascended through the stent string. He was treated with 5 days of ampicillin for enterococcus with good response - wbc greatly improved and defervescence. He is discharge in stable condition to home with another 7 days of ampicillin. He was advised to return to ER if his symptoms return and he understood this. He was counseled to stop smoking and for the incidental findings of R pulmonary nodules and bronchiectasis he is to follow up with Dr. Monet after repeat CT chest in 3 months. Repeat CBC to ensure white count resolved in 3 days, w/ f/u to primary care within 1 week. Time Spent with Patient Time attestation: Total time spent providing and/or coordinating discharge services: DS: Data Data Completed and Pending Labs on day of discharge: Labs from last 24 hours 06/17/23 05:51 WBC 10.1 H RBC 4.54 L Hgb 11.9 L Hct 37.4 L MCV 82.4 MCH 26.2 MCHC 31.8 L RDW 14.3 Plt Count 315 MPV 10.1 Immature Gran % (Auto) 0.5 Neut % (Auto) 77.0 H Lymph % (Auto) 14.5 L Antelope % (Auto) 6.6 Eos % (Auto) 1.2 Baso % (Auto) 0.2 Lymph # (Auto) 1.46 Antelope # (Auto) 0.7 H Eos # (Auto) 0.1 Baso # (Auto) 0.0 Abs Immat Gran (auto) 0.05 H Absolute Neuts (auto) 7.8 H Absolute Nucleated RBC 0.0 Nucleated RBC % 0.0 Sodium 141 Potassium 3.7 Chloride 107 Carbon Dioxide 24 Anion Gap 10 BUN 11 Creatinine 1.00 Estim Creat Clear Calc 104 Estimated GFR > 60 Glucose 102 Calcium 8.8 Procalcitonin 0.5 Preliminary micro results at discharge 06/13/23 22:31 Blood Culture - Preliminary Blood 06/13/23 22:23 Blood Culture - Preliminary Blood Discharge Plan Discharge Attending physician on discharge: Narda Douglass Consulting providers: Asif Hurst Discharging Clinician: Narda Douglass Patient Disposition: Home, Self-Care Activity: may shower Diet: regular Patient Instructions: Antibiotic Form, How to Stop Smoking (GEN), Pain Management (DC), Pain Management (GEN), Kidney Infection (DC) Stand Alone Forms: General Discharge Information Follow-up/Referrals: PHYSICIAN,SCHOOL SPEECH LANGUAGE PATHOLOGIST [Primary Care Provider] - Terrance Monet MD [Physician] - Call for Appointment (follow up with [address] of chest.) Discharge Medications: New ampicillin 500 mg capsule 500 mg PO Q6H 7 Days Qty: 28 0RF Continued omeprazole 20 mg Capsule,Delayed Release(Dr/Ec) 20 mg PO DAILY PRN (Reason: Indigestion) Other Ambulatory Orders: Complete Blood Count with Diff (Routine) Timeframe: 3 Days Location: Determined by Patient Ordered By: Narda Douglass CT chest high resolution w con (Routine) Timeframe: 3 Months Location: Determined by Patient Ordered By: Narda Douglass Date of admission: 06/12/23 18:49 Primary Care Provider: PHYSICIAN,SCHOOL SPEECH LANGUAGE PATHOLOGIST Admitting Provider: Minnie Menjivar Attending physician on admission: Minnie Menjivar Condition: Stable
[2023-06-18 11:06] LABS: CA 19-9 5 U/mL (<34)
== END 2023-06-17 12:30 | disposition home or self-care (01) | DRG 466 ==
LOC: ANHED 20:36 → ANH2MED 21:36
PROVIDERS: Internal Medicine; Admitting Provider Internal Medicine; Emergency Provider Emergency Medicine; Visit Provider General Practice
DX: T83.592A Infection and inflammatory reaction due to indwelling ureteral stent, initial encounter (principal); A41.9 Sepsis, unspecified organism; N13.30 Unspecified hydronephrosis; D63.8 Anemia in other chronic diseases classified elsewhere; N10 Acute pyelonephritis; J47.9 Bronchiectasis, uncomplicated; B95.2 Enterococcus as the cause of diseases classified elsewhere; Z20.822 Contact with and (suspected) exposure to COVID-19; F17.210 Nicotine dependence, cigarettes, uncomplicated; Z87.442 Personal history of urinary calculi
CPT/HCPCS: 36415; 71260; 74176; 74177; 80048; 80053; 80202; 81001; 82378; 82728; 83540; 83550; 83605; 83735; 84145; 85025; 85027; 86301; 86304; 87040; 87077; 87086; 87088; 87186; 87635; 87641; 96361; 96365; 96372; 96374; 96375; 96376; 99285; A9270; G0378; J0290; J0696; J1170; J1650; J2405; J2543; J3370; J7030; Q9967

== ENCOUNTER 2023-06-26 16:18 | Outpatient (CLI) | payer SELFPAY ==
[2023-06-26 16:47] LABS: Basophils Percent Auto 0.4 % (0.2-1.2); Eosinophils Absolute Auto 0.2 K/mm3 (0-0.3); Eosinophils Percent Auto 2.4 % (0-4.4); Hematocrit 42.1 % (42.0-52.0); Hemoglobin 13.2 g/dL (14.0-18.0); Immature Granulocyte Absolute 0.03 K/mm3 (0.00-0.031); Immature Granulocyte Percent A 0.4 % (0-0.5); Lymphocytes Absolute Auto 1.98 K/mm3 (0.9-3.2); Lymphocytes Percent Auto 25.5 % (18.3-44.2); Mean Corpuscular HGB Conc 31.4 g/dl (32-36); Mean Corpuscular Hemoglobin 26.1 pg (26-34); Mean Corpuscular Volume 83.4 fl (80-100); Mean Platelet Volume 9.7 fl (7.4-10.4); Monocytes Absolute Auto 0.4 K/mm3 (0.1-0.6); Monocytes Percent Auto 5.7 % (2.6-8.5); Neutrophils Absolute Auto 5.1 K/mm3 (1.3-6.7); Neutrophils Percent Auto 65.6 % (45.5-73.1); Platelet Count Result 413 k/mm3 (150-375); Red Blood Count 5.05 M/mm3 (4.6-6.20); Red Cell Distribution Width 14.2 % (11.5-14.5); White Blood Count 7.8 K/mm3 (4.5-10.0)
== END 2023-06-26 16:19 | disposition home or self-care (01) ==
LOC: ANHLAB 16:19
PROVIDERS: Visit Provider General Practice
DX: J47.9 Bronchiectasis, uncomplicated (principal); N12 Tubulo-interstitial nephritis, not specified as acute or chronic
CPT/HCPCS: 36415; 85025